=== PATIENT | male | born 1945 | race Caucasian/White ===

== ENCOUNTER 2024-12-27 08:35 | Emergency (ER) | payer MEDICARE ==
[~2024-12-27] VITALS: Ht 177.8 cm; Wt 84.4 kg
[~2024-12-27 08:35] MED LIST: FLUO-341 PO; LISI1TAB51 PO; TERA10CA4 PO; TRAZ-185 PO
[2024-12-27 08:38] VITALS: TEMP 97.7
[2024-12-27 09:07] LABS: BASOPHILS # (AUTO) 0.01 K/uL (0.00-0.20); BASOPHILS % (AUTO) 0.2 % (0.0-5.0); EOSINOPHILS # (AUTO) 0.12 K/uL (0.00-0.70); EOSINOPHILS % (AUTO) 2.2 % (0.0-8.0); HEMATOCRIT 44.8 % (42-54); IMMATURE GRANULOCYTE ABSOLUTE 0.01 K/uL (0-1); LYMPHOCYTES # (AUTO) 1.7 K/uL (1.0-4.8); LYMPHOCYTES % (AUTO) 30.7 % (21.0-51.0); MEAN CORPUSCULAR HEMOGLOBIN 29.4 pg (27.0-33.0); MEAN CORPUSCULAR VOLUME 89.1 fL (79-99); MONOCYTES # (AUTO) 0.6 K/uL (0.1-1.0); MONOCYTES % (AUTO) 10.4 % (3.0-13.0); NEUTROPHILS # (AUTO) 3.1 K/uL (1.8-7.7); NEUTROPHILS % (AUTO) 56.3 % (40.0-77.0); PLATELET COUNT (AUTO) 147 K/uL (130-400); RED BLOOD CELL COUNT(AUTO) 5.03 MIL/uL (4.50-6.20); RED CELL DISTRIBUTION WIDTH 13.8 % (11.0-15.5); WHITE BLOOD COUNT (AUTO) 5.5 K/uL (4.8-10.8)
--- NOTE | 2024-12-27 09:14 | ERN ---
General Chief Complaint: Chest Pain Stated Complaint: CHEST PAIN Time Seen by MD: 08:38 Source: patient, family History of Present Illness Initial Comments In his is a 79-year-old male coming in to be evaluated for epigastric discomfort. Patient states that the epigastric discomfort lasted about 30 minutes he felt bloated took some medication. States it was not getting better but upon arrival to ER he states his symptoms completely subsided. Patient was evaluated and states he has no more pain is pain is quantified at 0. Allergies: Coded Allergies: No Known Drug Allergies (Unverified Allergy, Unknown, 03/01/24) Home Meds Reported Medications Trazodone HCl (Trazodone HCl) 50 Mg Tablet, 50 MG PO AM, TAB 03/01/24 Fluoxetine HCl (Fluoxetine HCl) 10 Mg Capsule, 1 CAP PO DAILY 03/01/24 Terazosin HCl (Terazosin HCl) 10 Mg Capsule, 1 CAP PO DAILY 03/01/24 Lisinopril/Hydrochlorothiazide (Lisinopril-Hctz 20-12.5 mg Tab) 20 Mg-12.5 Mg Tablet, 1 TAB PO DAILY 03/01/24 Past Medical History Past Medical History: Depression, Heart Disease, Hypertension Past Surgical History: Cholecystectomy Surgical History Other: DENIES SURGICAL HX ROS Dictation CONSTITUTIONAL: No chills, no fever, no weakness, no diaphoresis, no malaise. HEAD/FACE: No signs of trauma. EENT: No eye pain, no blurred vision, no tearing, no double vision, no ear pain, no ear discharge, no nose pain, no nasal congestion, no throat pain, no throat swelling, no mouth pain. RESPIRATORY: No cough, no orthopnea, no SOB, no stridor, no wheezing. CARDIOVASCULAR: No chest pain, no edema, no palpitations, no syncope. GASTROINTESTINAL/ABDOMINAL: No abdominal pain, no constipation, no diarrhea, no nausea, no vomiting. GENITOURINARY: No abnormal discharge, no dysuria, no frequent urination, no hematuria. No complaints of pain in the genitals. MUSCULOSKELETAL: No back pain, no gout, no joint pain, no joint swelling, no muscle pain, no muscle stiffness, no neck pain. INTEGUMENTARY: No change in color, no change in hair/nails, no dryness, no lesion, no lumps, no rash. NEUROLOGICAL/PSYCH: No anxiety, not depressed, no emotional problem, no headache, no numbness, no pre-existing deficit, no history of seizures, no tremors, no weakness. HEMATOLOGIC/LYMPHATIC: Not anemic, no history of blood clots, no apparent bleeding, no bruising, glands not swollen. All Systems Negative, Except as Noted. Physical Exam Physical Exam Dictation VITAL SIGNS: Reviewed. GENERAL APPEARANCE: Alert, oriented x3, no acute distress, obese. HEAD AND FACE: Non-traumatic. EYES: PERRL, pink conjunctivas, eyelid no trauma, anterior chamber clear. EARS: Pinnas intact and no signs of trauma or erythema. Ear canals clear and no discharge. TMs no erythema. NOSE: No discharge, no bleeding. OROPHARYNX: Mouth normal, teeth no caries, tongue pink. Pharynx clear, no erythema. Tonsils no exudates, no abscesses noted. Mucous membrane moist. NECK: Supple, non-tender, no thyromegaly, no masses, no JVD, no bruits. BREAST: Deferred. CHEST: No tenderness, no crepitus, no paradoxical movement, no retractions. LUNGS: Clear, well-ventilated, symmetric, no rales, no wheezing, no rhonchi, no stridor, good breath sounds bilaterally. HEART: Regular rate, regular rhythm, no murmur, no gallops. VASCULAR: No peripheral edema. ABDOMEN: Soft, positive bowel sounds, nondistended, no guarding, nontender, no rebound, no masses no hepatomegaly, no splenomegaly, no Burgess's sign, no luisito ias. RECTAL: Deferred. GENITAL: Deferred. NEUROLOGICAL: Normal speech, gross motor function intact, gross sensory function intact. MUSCULOSKELETAL: Neck nontender, full range of motion, back nontender, full range of motion. EXTREMITIES: Nontender, full range of motion. SKIN: Color pink, dry, no turgor, no rash, no lacerations, no abrasions, no contusions. LYMPHATICS: Deferred. Results Laboratory and Microbiology Lab and Micro Result Laboratory Tests Test 12/27/24 08:54 White Blood Count 5.5 K/uL (4.8-10.8) Red Blood Count 5.03 MIL/uL (4.50-6.20) Hemoglobin 14.8 g/dL (14.0-18.0) Hematocrit 44.8 % (42-54) Mean Corpuscular Volume 89.1 fL (79-99) Mean Corpuscular Hemoglobin 29.4 pg (27.0-33.0) Mean Corpuscular Hemoglobin Concent 33.0 g/dL (32.0-36.0) Red Cell Distribution Width 13.8 % (11.0-15.5) Platelet Count 147 K/uL (130-400) Mean Platelet Volume 10.9 fL (7.5-10.5) H Immature Granulocyte % (Auto) 0.2 % (0-1) Neutrophils (%) (Auto) 56.3 % (40.0-77.0) Lymphocytes (%) (Auto) 30.7 % (21.0-51.0) Monocytes (%) (Auto) 10.4 % (3.0-13.0) Eosinophils (%) (Auto) 2.2 % (0.0-8.0) Basophils (%) (Auto) 0.2 % (0.0-5.0) Neutrophils # (Auto) 3.1 K/uL (1.8-7.7) Lymphocytes # (Auto) 1.7 K/uL (1.0-4.8) Monocytes # (Auto) 0.6 K/uL (0.1-1.0) Eosinophils # (Auto) 0.12 K/uL (0.00-0.70) Basophils # (Auto) 0.01 K/uL (0.00-0.20) Absolute Immature Granulocyte (auto 0.01 K/uL (0-1) Nucleated Red Blood Cells 0.0 % (0.0-0.19) Prothrombin Time 10.8 SEC (9.6-11.6) Prothromb Time International Ratio 0.96 (0.85-1.15) Activated Partial Thromboplast Time 26.2 SEC (26.3-35.5) L Sodium Level 138 mmol/L (136-145) Potassium Level 3.6 mmol/L (3.5-5.1) Chloride Level 103 mmol/L (101-111) Carbon Dioxide Level 31 mmol/L (21-32) Blood Urea Nitrogen 15 mg/dL (7-18) Creatinine 1.1 mg/dL (0.5-1.3) Glomerular Filtration Rate Calc 69 mL/min (>90) Random Glucose 154 mg/dL (70-105) H Total Calcium 8.4 mg/dL (8.5-10.1) L Magnesium Level 1.90 mg/dL (1.80-2.40) Total Creatine Kinase 155 U/L (21-232) Troponin I High Sensitivity 60 ng/L (4-75) B-Type Natriuretic Peptide 24 pg/mL (0-100) EKG/XRAY/US/CT/MRI EKG Comment 12/27/2024 time 8:37 a.m. Ventricular rate 46 Sinus bradycardia SC [address] wave elevation or depression MDM MDM: Differential diagnosis: Chest pain, gastritis, GERD, Patient is a 79-year-old male coming in to be evaluated for abdominal discomfort. Patient states that he has been under lot of stress and had a friend who had a cardiac issue. He states that because of this he came in for further evaluation but in reality his abdominal discomfort has subsided earlier today prior to arrival. Cardiac workup negative for acute findings patient has been asymptomatic throughout ER visit. Patient will be discharged in stable condition with a diagnosis of gastritis. I advised him appropriate follow up with PCP in 1-2 days. ED Course Orders Procedure Category Date Status Time Cbc With Differential LAB 12/27/24 Complete 08:47 Prothrombin Time With LAB 12/27/24 Complete INR 08:47 B-Type Natriuretic LAB 12/27/24 Complete Peptide 08:47 Chest 1vw RAD 12/27/24 Resulted 08:47 12 Lead Ekg Tracing- EKG 12/27/24 Logged Technical 08:47 Magnesium LAB 12/27/24 Complete 08:47 Creatine Kinase, Total LAB 12/27/24 Complete 08:47 Troponin I High LAB 12/27/24 Complete Sensitivity 08:47 Urinalysis Profile LAB 12/27/24 Logged 08:47 Partial LAB 12/27/24 Complete Thromboplastin Time 08:47 Basic Metabolic Panel LAB 12/27/24 Complete 08:47 Vital Signs Date Time Temp Pulse Resp B/P (MAP) Pulse Ox O2 Delivery O2 Flow Rate FiO2 12/27/24 08:38 97.7 42 18 158/62 96 Room Air DX & DISP Disposition: Discharge Departure Impression: Primary Impression: Gastritis Condition: Stable Scripts Pantoprazole Sodium (Protonix) 40 Mg Ectab 1 TAB PO DAILY for 30 Days, #30 TAB 0 Refills Prov: CHRISTINA GALVAN MD 12/27/24 Additional Instructions: You have been reviewed in the emergency department at [facility] after presenting with chest pain. After considering your history, your risk factors, your EKG and your blood test troponins, have been found to be at very low risk less than (1 in 100) of having a major adverse cardiac event (like heart attack) in the near future. In the " low risk" group, the risks of doing further tests and treatment as the inpatient outweighs the benefits. In many patients in the low risk group for the test of any sort or unnecessary, however he should discuss this further with his general practitioner who will understand the medical and personal backgrounds better. Because we have never declared you" no risk" we would suggest. 1 returning for medical review if you have further episodes of chest pain/arm pain or other concerning symptoms like dizziness, collapse, palpitations or shortness of breath. 2. Following up with your local doctor who will consider the need for further testing and will also ensure that any modifiable risk factors you may have for heart disease are optimally managed. Patient will be discharged in stable condition at the moment discharge patient states , no chest pain Referrals: ZEYAD POSADAS MD (PCP) Time of Disposition: 10:11 CHRISTINA GALVAN MD Dec 27, 2024 09:14
[2024-12-27 09:15] LABS: CREATININE 1.1 mg/dL (0.5-1.3); POTASSIUM 3.6 mmol/L (3.5-5.1)
[2024-12-27 09:19] LABS: INR 0.96 (0.85-1.15); PROTHROMBIN TIME 10.8 SEC (9.6-11.6)
[2024-12-27 09:20] LABS: MAGNESIUM 1.9 mg/dL (1.80-2.40); PARTIAL THROMBOPLASTIN TIME 26.2 SEC (26.3-35.5)
[2024-12-27 09:27] LABS: B-TYPE NATRIURETIC PEPTIDE 24 pg/mL (0-100)
--- NOTE | 2024-12-27 09:52 | HMCIMG ---
Exam Type: CHEST 1VW Clinical Information: cp Comparison: None Findings: The lungs are clear of infiltrates. The heart is normal in size. The bony and soft tissue structures of the chest are unremarkable. Impression: Clear lungs.
[2024-12-27] MEDS ORDERED: PANT40TA55 PO (10:12)
[2024-12-27 10:36] LABS: APPEARANCE,URINE CLEAR (CLEAR); BILIRUBIN,URINE NEGATIVE (NEGATIVE); COLOR,URINE LIGHT-YELLOW (YELLOW); GLUCOSE, URINE (UA) NEGATIVE (NEGATIVE); KETONES,URINE NEGATIVE (NEGATIVE); LEUKOCYTE ESTERASE ,URINE NEGATIVE Leu/uL (NEGATIVE); NITRATE,URINE NEGATIVE (NEGATIVE); OCCULT BLOOD,URINE NEGATIVE (NEGATIVE); PROTEIN,URINE NEGATIVE (NEGATIVE); UROBILINOGEN,URINE 0.2 mg/dL (0.2-1.0)
[2024-12-27 10:38] VITALS: BP 137/72; PULSE 50; RESP 16; O2SAT 96
[2024-12-27 10:39] LABS: ADD UA MICROSCOPIC NO
--- NOTE | 2024-12-27 17:53 | EKG ---
[facility] Test Date: 2024-12-27 Test Time: 08:37:45 Pat Name: BLAS ALBA Department: [facility] Room: Gender: M [employer] Player: [id number] : [id number] Requested By: CHRISTINA GALVAN Order Number: [id number] Reading MD: Servando Dial Measurements Intervals [place] Rate: 46 P: 62 AL: 193 QRS: -9 QRSD: 108 T: -10 QT: 537 QTc: 470 Interpretive Statements Sinus bradycardia Ventricular premature complex Probable left ventricular hypertrophy Compared to ECG 03/01/2024 18:06:12 Sinus rhythm no longer present Prolonged QT interval no longer present Electronically Signed On 12-29-2024 18:16:45 [employer]RAW[employer] by Servando Dial Please click the below link to view image of tracing.
== END 2024-12-27 10:53 | disposition home or self-care (01) ==
LOC: EDH 08:35
DX: K29.70 Gastritis, unspecified, without bleeding (principal); F32.A Depression, unspecified; I10 Essential (primary) hypertension; Z79.899 Other long term (current) drug therapy; Z90.49 Acquired absence of other specified parts of digestive tract
CPT/HCPCS: 36415; 71045; 80048; 81003; 82550; 83735; 83880; 84484; 85025; 85610; 85730; 93005; 99285